=== PATIENT | male | born 1940 | race Caucasian/White ===

== ENCOUNTER 2017-08-21 08:35 | Day surgery (SDC) | payer MEDICARE, SELFPAY ==
[2017-08-20 14:12] VITALS: BMI 19.8
[2017-08-21] VITALS (7 sets, daily range): BP systolic 78–129; BP diastolic 44–67; PULSE 62–70; RESP 16–18; TEMP 36.4–36.8; O2SAT 95–100
--- NOTE | 2017-08-21 08:55 | HMH.ANESCL ---
[facility] Anesthesia Checklist - Patient Identification Patient Identification: Arm Band, Verbal (Name & ) - Structural Data Admitted From: Home Planned Operative Procedure/s: egd Consent for Planned Operative Procedure(s) Verified: Yes Verified Documents: Surgical Consent - NPO Status Verified Time NPO: 00:00 - Chart Verification Results Verified: CBC, BMP - Additional verifications Patient : No Anesthesia Reactions: No Hx Blood Transfusions: No Blood Transfusion Reaction: No Cephalosporin Allergy: No Previous Colonoscopy: No - Cardiovascular Assessment Heart Sounds: S1 & S2 Pulse Strength: Strong Pulse Rhythm: Regular Peripheral Edema: No - Airway Assessment C-Spine Mobility Assessed: Yes TMJ Mobility Assessed: Yes Dentition: Dentures-good fit (uppers) - Neurological Assessment Level of Consciousness: Awake, Alert, Appropriate Hx Seizures: No Numbness or tingling in extremities: No - Anesthesia Plan Anesthesia Risk discussed: Yes Anesthesia Plan: Verified ASA Class: III Anesthesia Type: MAC [facility] Anesthesia HX I have reviewed the patient's past medical history: Yes Medical History: Reports:: Cancer (lung), Hypertension, Lung Disease (LUNG CA-RADIATION), Ulcer Denies:: Diabetes Mellitus Type 1, Diabetes Mellitus Type 2, Internal Pacemaker Other Medical History: Reports: Hypothyroidism Other Surgeries: Yes: Appendectomy, Cancer Surgery, Colonoscopy, Colon Resection, EGD. No: Pacemaker *Family Hx:: Diabetes, Cancer
--- NOTE | 2017-08-21 08:58 | P.PN_ITS ---
[facility] Anesthesia Checklist - Patient Identification Patient Identification: Arm Band, Verbal (Name & ) - Structural Data Admitted From: Home Planned Operative Procedure/s: egd Consent for Planned Operative Procedure(s) Verified: Yes Verified Documents: Surgical Consent - NPO Status Verified Time NPO: 00:00 - Chart Verification Results Verified: CBC, BMP - Additional verifications Patient : No Anesthesia Reactions: No Hx Blood Transfusions: No Blood Transfusion Reaction: No Cephalosporin Allergy: No Previous Colonoscopy: No - Cardiovascular Assessment Heart Sounds: S1 & S2 Pulse Strength: Strong Pulse Rhythm: Regular Peripheral Edema: No - Airway Assessment C-Spine Mobility Assessed: Yes TMJ Mobility Assessed: Yes Dentition: Dentures-good fit (uppers) - Neurological Assessment Level of Consciousness: Awake, Alert, Appropriate Hx Seizures: No Numbness or tingling in extremities: No - Anesthesia Plan Anesthesia Risk discussed: Yes Anesthesia Plan: Verified ASA Class: III Anesthesia Type: MAC [facility] Anesthesia HX I have reviewed the patient's past medical history: Yes Medical History: Reports:: Cancer (lung), Hypertension, Lung Disease (LUNG CA- RADIATION), Ulcer Denies:: Diabetes Mellitus Type 1, Diabetes Mellitus Type 2, Internal Pacemaker Other Medical History: Reports: Hypothyroidism Other Surgeries: Yes: Appendectomy, Cancer Surgery, Colonoscopy, Colon Resection , EGD. No: Pacemaker *Family Hx:: Diabetes, Cancer
--- NOTE | 2017-08-21 09:26 | HMH.SCOPE ---
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 He has been on medical therapy and is without complaints. He returns for short-term repeat EGD. Performing Provider:: Grant Felder MD Referring Provider:: Dr. Humphrey Sedation:: Monitored anesthesia care Procedure:: After informed consent was obtained, the patient was taken to the endoscopy suite. Monitored anesthesia care ensued after he was transferred to the left lateral decubitus position. The gastroscope was advanced. The stomach was entered. Retroflexion confirmed a sliding hiatal hernia. Evaluation distally revealed dramatic improvement with regard to the ulceration. The antrum/pyloric margin ulcer was still visible, but significantly improved with regard to size and degree of inflammation. Minimal crater effect noted. Multiple biopsies were obtained. The gastroscope was carefully removed and the patient was transferred to recovery. Findings:: Dramatic improvement in antrum/pyloric margin ulcer Sliding hiatal hernia unchanged Specimens:: Antrum/pyloric margin ulceration Recommendations:: Continue current medical therapy Repeat EGD in 6-8 weeks Complications:: No immediate Estimated blood obtained (mL): 1
--- NOTE | 2017-08-21 09:29 | P.PCN_ITS ---
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 He has been on medical therapy and is without complaints. He returns for short-term repeat EGD. Performing Provider:: Grant Felder MD Referring Provider:: Dr. Humphrey Sedation:: Monitored anesthesia care Procedure:: After informed consent was obtained, the patient was taken to the endoscopy suite. Monitored anesthesia care ensued after he was transferred to the left lateral decubitus position. The gastroscope was advanced. The stomach was entered. Retroflexion confirmed a sliding hiatal hernia. Evaluation distally revealed dramatic improvement with regard to the ulceration. The antrum/ pyloric margin ulcer was still visible, but significantly improved with regard to size and degree of inflammation. Minimal crater effect noted. Multiple biopsies were obtained. The gastroscope was carefully removed and the patient was transferred to recovery. Findings:: Dramatic improvement in antrum/pyloric margin ulcer Sliding hiatal hernia unchanged Specimens:: Antrum/pyloric margin ulceration Recommendations:: Continue current medical therapy Repeat EGD in 6-8 weeks Complications:: No immediate Estimated blood obtained (mL): 1
== END 2017-08-21 10:10 ==
PROVIDERS: Family Provider Family Medicine; PCP Family Medicine; Visit Provider Surgery
PROC: 0DJ08ZZ Inspection of Upper Intestinal Tract, Via Natural or Artificial Opening Endoscopic (ICD-10-PCS; CPT 43235; principal; 2017-08-21 09:00)
DX: K25.9 Gastric ulcer, unspecified as acute or chronic, without hemorrhage or perforation (principal); K44.9 Diaphragmatic hernia without obstruction or gangrene
CPT/HCPCS: 43239; 88305

== ENCOUNTER 2021-03-19 11:19 | Emergency (ER) | payer MEDICARE, SELFPAY ==
[2021-03-19] VITALS (11 sets, daily range): BP systolic 0–167; BP diastolic 0–88; PULSE 0–142; RESP 0–18; TEMP -17.7–0; O2SAT 0–100; BMI 15.7
--- NOTE | 2021-03-19 10:40 | PC.NURSE ---
BS 239
--- NOTE | 2021-03-19 10:50 | PC.NURSE ---
Pt intubated at this time,7.5 et, 25 at the lip, pt tolerated well.
--- NOTE | 2021-03-19 11:02 | XR_ITS ---
PROCEDURE: XR CHEST PORTABLE CLINICAL HISTORY: cough COMPARISON: CR CXR1 CHEST-PORTABLE from 03/21/2015 CR CXR1 CHEST-PORTABLE from 03/23/[address] CHEST W/ CONTRAST from 03/25/2015 CR CXR CHEST(2 VIEWS-NOT PORTABLE) from 03/28/2017 FINDINGS: There is mild cardiomegaly without failure. Endotracheal tube is present. The tip is in good position 3 cm above the barbara. There is mild patient rotation with suggestion of mild mediastinal shift to the left indicating left-sided volume loss. There is increased density in the left lung base which may be due to atelectasis or infiltrate. There is hyperinflation of the right lung with blunting of the CP angle and multiple old right-sided rib fractures. IMPRESSION: Endotracheal tube in good position. Left-sided lung volume loss with atelectasis or infiltrate in the left lung base. Dictated by: Edgar Catherine MD 03/19/2021 11:53 Edgar Catherine MD in [facility] 03/19/2021 11:53
[2021-03-19 11:08] LABS: Microscopic, Urine URINE MICROSCOPIC (MICROSCOPIC)
[2021-03-19 11:13] LABS: Appearance,Urine CLEAR (Clear); Bilirubin,Urine Negative (Negative); Blood, Urine TRACE-I (Negative); Color,Urine YELLOW (Yellow); Glucose,Urine (UA) TRACE (Negative); Ketones,Urine 1+ (Negative); Leukocyte Esterase,Urine Negative (Negative); Nitrate,Urine Negative (Negative); Protein,Urine 1+ (Negative); Specific Gravity, Urine 1.015 (1.005-1.030); Urobilinogen,Urine 0.2 EU/dl (0.2)
[2021-03-19 11:17] LABS: Basophils # 0.2 K/mm3 (0-0.2); Basophils % 0.9 % (0.1-2.0); Eosinophils # 0.2 K/mm3 (0.0-0.4); Eosinophils % 0.8 % (0.1-12.0); Hematocrit 52.4 % (42.0-52.0); Hemoglobin 16.9 g/dL (14.1-18.0); Lymphocytes # 10.7 K/mm3 (0.7-4.5); Lymphocytes % 46.4 % (10-50); Mean Corpuscular HGB Conc 32.3 g/dL (31.8-35.4); Mean Corpuscular Hemoglobin 35.1 pg (27.0-31.2); Mean Corpuscular Volume 108.7 fl (80-94); Mean Platelet Volume 9.8 fl (7.4-10.4); Monocytes # 0.7 K/mm3 (0.1-1.0); Monocytes % 3.1 % (1.7-9.3); Neutrophils # 11.2 K/mm3 (1.8-7.8); Neutrophils % 48.8 % (37.0-80.0); Platelet Count 318 K/mm3 (142-424); Red Blood Count 4.83 M/mm3 (4.60-6.20); Red Cell Distribution Width 14.4 % (11.5-17.5)
[2021-03-19 11:22] LABS: MANUAL DIFFERENTIAL MANUAL DIFFERENTIAL (MANUAL DIFF)
--- NOTE | 2021-03-19 11:24 | CT_ITS ---
PROCEDURE: CT CHEST WO CON CLINICAL INDICATION: vomiting blood COMPARISON: CT LDCTLCAS LDCT FOR LUNG CA SCREEN from 04/09/2017 TECHNIQUE: Axial images obtained with sagittal and coronal reformats. All CT scans at the facility use one or more dose reduction, viz: automated exposure control, ma/kV adjustment per patient size (including targeted exams where dose is matched to indication, i.e. head), or iterative reconstruction technique. FINDINGS: There is an endotracheal tube present. Tip is approximately 2 cm above the barbara. Fluid is present in the esophagus. COPD changes with scattered areas of scarring. There is increased soft tissue density in the superior segment of the left lower lobe some of which could be due to volume loss or scarring. Neoplasm is an additional consideration. This area measures 3.5 x 2.3 cm. Previously there was a 2.8 cm spiculated mass at this region. There is volume loss of the left lower lobe with bronchiectasis. Scarring/fluid noted along the left major fissure inferiorly. Left hemidiaphragm is elevated. There is debris present within the left lower lobe bronchi and proximal aspect of the left upper lobe bronchus. IMPRESSION: COPD with scattered areas of scarring with volume loss and bronchiectasis in the left lower lobe. There is increased density in the left hilar region which could be due to residual neoplasm versus collapse lung and/or scarring. Please correlate with more recent exam if available for comparison. Endotracheal tube in good position. Fluid-filled esophagus Dictated by: Edgar Catherine MD 03/19/2021 13:05 Edgar Catherine MD in [facility] 03/19/2021 13:05
--- NOTE | 2021-03-19 11:24 | CT_ITS ---
PROCEDURE: CT ABDOMEN PELVIS WO CON CLINICAL INDICATION: vomiting blood COMPARISON: CT ABDPELW/O CT ABD PELVIS W/O CONTRAST from 06/10/2017 TECHNIQUE: Axial images obtained with sagittal and coronal reformats. All CT scans at the facility use one or more dose reduction, viz: automated exposure control, ma/kV adjustment per patient size (including targeted exams where dose is matched to indication, i.e. head), or iterative reconstruction technique. FINDINGS: The liver, gallbladder, spleen, have an unremarkable appearance. Punctate calcifications are present in the pancreatic head consistent with chronic pancreatitis. Left hemidiaphragm is elevated There is diffuse motion artifact obscuring fine detail. There is mild prominence of the renal collecting system on both sides but no obvious renal or ureteral calculus. There is mild stranding of the perinephric renal fat on the left. No obvious intestinal obstruction or free air. Chavis catheter is present. Urinary bladder wall is lobulated and mildly thickened the. The prostate is enlarged at 5 cm. There is a Chavis catheter present with a small amount air in the bladder. There is colonic diverticulosis but no evidence of diverticulitis. Multiple unopacified bowel loops in the abdomen or pelvis which could obscure or mimic pathology. If symptoms persist, consider repeat exam with IV and oral contrast.. No evidence of appendicitis. Suture line is present in the mid pelvic region and right lower quadrant. There are old fractures of the symphysis pubis on the left. IMPRESSION: No definite acute finding. Limited exam secondary to motion artifact and lack of IV and oral contrast. Incidental nonacute findings as described above. The the Dictated by: Edgar Catherine MD 03/19/2021 13:11 Edgar Catherine MD in [facility] 03/19/2021 13:11
--- NOTE | 2021-03-19 11:24 | CT_ITS ---
PROCEDURE: CT HEAD/BRAIN WO CON CLINICAL INDICATION: vomiting blood Unresponsive COMPARISON: CT CT ABDOMEN PELVIS WO CON from 03/19/[address] CHEST WO CON from 03/19/2021 TECHNIQUE: Axial images obtained. All CT scans at the facility use one or more dose reduction, viz: automated exposure control, ma/kV adjustment per patient size (including targeted exams where dose is matched to indication, i.e. head), or iterative reconstruction technique. FINDINGS: There is a large left intraparenchymal hematoma in the left frontal parietal and temporal region measuring 9.6 cm AP, 5.6 cm transverse with a 2 cm midline shift toward the right with sub falcine herniation. Intraventricular blood is present in the lateral ventricles, 3rd ventricle and 4th ventricle. The left-sided intraparenchymal hematoma is epicentered at the basal ganglia/oro radiata region with extension down into the midbrain/tanya area. There is a moderate amount of surrounding edema. The right lateral ventricle is dilated indicating obstruction of the right foramen of Monro. The left lateral ventricle is compressed by the large hematoma. There is fluid/mucous in the oropharynx with interspersed gas. There is an air-fluid level in the right maxillary sinus and moderate mucosal thickening of the ethmoid sinuses in the right frontal sinus inferiorly. IMPRESSION: Large left intraparenchymal hematoma with extension into the mid brain and lung associated intraventricular hemorrhage with 2 cm midline shift to the right with sub falcine herniation. These results were given to Dr. Robison by telephone 03/19/2021 at 12:48 p.m. Dictated by: Edgar Catherine MD 03/19/2021 12:54 Edgar Catherine MD in [facility] 03/19/2021 12:54
[2021-03-19 11:25] LABS: RBC,Urine Occasional #/hpf (0-3); Squamous Epithelial Cell,Urine Occasional #/hpf (0-5)
--- NOTE | 2021-03-19 11:25 | PC.NURSE ---
Lab agreed to come get additional blood work on patient
[2021-03-19 11:26] LABS: Benzodiazepines Screen,Urine Negative ng/ml (<200)
[2021-03-19 11:27] LABS: Amphetamine/Metha Screen,Urine Negative ng/ml (<1000)
[2021-03-19 11:28] LABS: Barbiturates Screen,Urine Negative ng/ml (<200); Methadone Screen,Urine Negative ng/ml (<300)
[2021-03-19 11:29] LABS: Cannabinoid Screen,Urine Negative ng/ml (<50)
[2021-03-19 11:30] LABS: Cocaine Screen,Urine Negative ng/ml (<300); Opiate Screen,Urine Negative ng/ml (<300)
[2021-03-19 11:31] LABS: Phencyclidine Screen,Urine Negative ng/ml (<25)
[2021-03-19 11:42] LABS: Eosinophils % 5 % (0-3); Lymphocytes % 39 % (10-50); Macrocytosis 2+; Monocytes % 5 % (2-9); Neutrophils % 47 % (42-76); Nucleated Red Blood Cells 2; Platelet Estimate Normal; Total Cells Counted 100
--- NOTE | 2021-03-19 11:42 | HMH.EDAMS ---
ED Disposition Clinical Impression: Intraventricular hemorrhage Altered mental status Qualifiers: Altered mental status type: coma Coma depth: [place] coma 3-8 Coma timing: at arrival to emergency department Qualified Code(s): R40.2432 - Sherri coma scale score 3-8, at arrival to emergency department Acute respiratory failure Qualifiers: Respiratory failure complication: hypoxia Qualified Code(s): J96.01 - Acute respiratory failure with hypoxia Disposition: Xfer Critical Access Hosp Condition on Discharge: Critical Instructions: DI for Altered Mental Status Referrals: Christos Humphrey MD [Primary Care Provider] - - Critical Care Critical Care Time: Yes Attestation: On 03/19/21, the high probability of a clinically significant, sudden or life threatening deterioration of the following system(s) required my full and direct attention, intervention and personal management. The time I documented below is in addition to time spent performing reported procedures but includes the following listed in this critical care notation. Total Critical Care Time: 45 Vital system(s) involved:: Circulatory Failure, Central Nervous System, Metabolic Failure, Respiratory Failure My critical care processes included: Assessment & monitoring of V/S, Initial and Re-exams, Data Review/Interpretation, Coordinating Care, Medication Orders and management, Documentation Medical Decision Making - Medical Records Medical records reviewed: Yes: I reviewed the patient's medical records. - Denys Inquiry Pt receiving controlled substance: No Vital Signs: 03/19/21 10:59 03/19/21 11:00 03/19/21 11:25 Pulse Rate Pulse Rate [Right Radial] 142 H Respiratory Rate 14 14 Blood Pressure Blood Pressure [Right Arm] 51/33 L Blood Pressure Mean Blood Pressure Mean [Right Arm] 39 Blood Pressure Source [Right Arm] Automatic Cuff Blood Pressure Position [Right Arm] Supine 02 Sat by Pulse Oximetry 90 L 98 96 Oxygen Delivery Method Non-Rebreather 03/19/21 11:30 03/19/21 11:45 Pulse Rate 77 66 Pulse Rate [Right Radial] Respiratory Rate 14 14 Blood Pressure 132/80 156/85 H Blood Pressure [Right Arm] Blood Pressure Mean 97 102 Blood Pressure Mean [Right Arm] Blood Pressure Source [Right Arm] Blood Pressure Position [Right Arm] 02 Sat by Pulse Oximetry 99 98 Oxygen Delivery Method - Lab Data Lab Results 03/19/21 10:50: Urine Color Yellow, Urine Appearance Clear, Urine pH 7.0, Ur Specific [place] 1.015, Urine Protein 1+, Urine Glucose (UA) Trace, Urine Ketones 1+, Urine Blood Trace-i, Urine Nitrate Negative, Urine Bilirubin Negative, Urine Urobilinogen 0.2, Ur Leukocyte Esterase Negative, Urine RBC Occasional, Urine WBC None, Ur Squamous Epith Cells Occasional, Urine Bacteria None 03/19/21 10:50: WBC 23.0 H*, RBC 4.83, Hgb 16.9, Hct 52.4 H, MCV 108.7 H, MCH 35.1 H, MCHC 32.3, RDW 14.4, Plt Count 318, MPV 9.8, Neut % (Auto) 48.8, Lymph % (Auto) 46.4, Grant % (Auto) 3.1, Eos % (Auto) 0.8, Baso % (Auto) 0.9, Neut # (Auto) 11.2 H, Lymph # (Auto) 10.7 H, Grant # (Auto) 0.7, Eos # (Auto) 0.2, Baso # (Auto) 0.2, Total Counted 100, Neutrophils % (Manual) 47, Band Neutrophils % 2.0, Lymphocytes % (Manual) 39, Monocytes % (Manual) 5, Eosinophils % (Manual) 5 H, Basophils % (Manual) 2.0 H, Nucleated RBCs 2, Platelet Estimate Normal, RBC Morphology Not Reportable, Macrocytosis 2+ 03/19/21 10:50: Urine Opiates Screen Negative, Urine Methadone Screen Negative, Ur Barbituates Screen Negative, Ur Phencyclidine Scrn Negative, Ur Amphetamines Screen Negative, U Benzodiazepines Scrn Negative, Urine Cocaine Screen Negative, U Marijuana (THC) Screen Negative 03/19/21 11:02: Specimen Source Right radial, O2 % 70%, ABG pH 7.25 L, ABG pCO2 52.7 H, ABG pO2 115.9 H, ABG HCO3 22.8, ABG Total CO2 24.4, ABG O2 Saturation 98, ABG Base Excess -4.4 L, Edgar Test Patient unable, Vent Rate 14, Tidal Volume 400, PEEP 5 03/19/21 11:50: Sodium 135 L, Potassium 3.5, Chl
[2021-03-19 12:10] LABS: Coronavirus 19, PCR Not Detected (NotDetected); Influenza A, PCR Not Detected (NotDetected); Influenza B, PCR Not Detected (NotDetected)
[2021-03-19 12:19] LABS: Chloride 99 mmol/L (98-107); Potassium 3.5 mmoL/L (3.5-5.1); Sodium 135 mmol/L (136-145)
[2021-03-19 12:22] LABS: Alanine Aminotransferase 28 U/L (12-78); Alkaline Phosphatase 45 U/L (38-126); Anion Gap 17.5 mEq/L (5-15); Aspartate Amino Transferase 49 U/L (17-59); Bilirubin,Total 0.8 mg/dl (0.2-1.3); Blood Urea Nitrogen 10 mg/dl (9-20); Carbon Dioxide 22 mmol/L (22.0-30.0); Creatinine Clearance Estimated 42 mL/min (50-200); Estimated Glomerular Filt Rate 109 ml/min (>60); GFR (African American) 131 ML/MIN (>60); Glucose 209 mg/dl (74-100); Lipase 62 U/L (23-300)
[2021-03-19 12:23] LABS: Albumin Level 4.2 g/dl (3.5-5.0); Albumin/Globulin Ratio 1.4 (1.1-1.8); Globulin 2.9 g/dL (1.3-3.2); Lactic Acid 2.9 mmol/L (0.7-2.1); Total Protein,Serum 7.1 g/dl (6.3-8.2)
[2021-03-19 12:24] LABS: Ethyl Alcohol < 10 mg/dl (0-10)
[2021-03-19 12:32] LABS: NT Pro Brain Natriuretic Pep. 396 pg/mL (0-450)
--- NOTE | 2021-03-19 12:32 | PC.NURSE ---
Pt to CT
[2021-03-19 12:33] LABS: ABG Base Excess -4.4 mmol/L (-2.4-2.3); ABG HCO3 22.8 mmhg (22.0-26.0); ABG Oxygen Saturation 98 % (90-100); ABG PH 7.25 mmol/L (7.35-7.45); ABG PO2 115.9 mmhg (80-100); ABG TCO2 24.4 mmhg (23-27)
[2021-03-19 12:35] LABS: Troponin I 0.05 ng/ml (0.00-0.034)
[2021-03-19 12:46] LABS: Allen's Test Patient Unable; Oxygen 70% %; PEEP 5; Source Right Radial; Tidal Volume 400; Vent Rate 14
[2021-03-19 12:47] LABS: ABG PCO2 52.7 mmhg (35.0-45.0)
[2021-03-19 12:54] LABS: Thyroid Stimulating Hormone 3.74 uIU/mL (0.465-4.68)
--- NOTE | 2021-03-19 13:40 | PC.NURSE ---
speaking to Dr Humphrey at this time
--- NOTE | 2021-03-19 13:47 | PC.NURSE ---
Addendum entered by Lashon Donaldosn RN 03/19/21 13:53: aware Original Note: FAmily has requested that pt not be transported to [place], that he stay here
--- NOTE | 2021-03-19 14:10 | PC.NURSE ---
pt extubated at this time per family request.
--- NOTE | 2021-03-19 14:35 | PC.NURSE ---
pt pronounced at this time, family at bs
--- NOTE | 2021-03-19 14:40 | PC.NURSE ---
[facility] contacted, spoke with David Bills who states that pt is r/o and ok to release pt
--- NOTE | 2021-03-19 14:50 | PC.NURSE ---
[employer] contacted at this time
[2021-03-19 15:07] LABS: Activated Partial Thrombo Time 24.4 seconds (22.8-30.6); Prothrombin Time 11.3 seconds (10.1-12.5)
[2021-03-19 15:09] LABS: INR 0.95 (0.9-1.1)
[2021-03-19 16:06] LABS: Reflex Lactic Add Lactic Reflex
== END 2021-03-19 16:22 | disposition expired ==
PROVIDERS: Emergency Provider Emergency Medicine; PCP Family Medicine
DX: I61.5 Nontraumatic intracerebral hemorrhage, intraventricular (principal); J96.01 Acute respiratory failure with hypoxia; R40.2432 Glasgow coma scale score 3-8, at arrival to emergency department; F10.10 Alcohol abuse, uncomplicated; Z85.118 Personal history of other malignant neoplasm of bronchus and lung; I10 Essential (primary) hypertension; Z11.52 Encounter for screening for COVID-19; Z79.899 Other long term (current) drug therapy; R06.09 Other forms of dyspnea
CPT/HCPCS: 31500; 36415; 70450; 71045; 71250; 74176; 80053; 80305; 81001; 82803; 83605; 83690; 83880; 84443; 84484; 85007; 85025; 85610; 85730; 87040; 87070; 87077; 87186; 87205; 96365; 96366; 96367; 96375; 99285; J2704; U0003